=== PATIENT | male | born 1930 | race Caucasian/White ===

== ENCOUNTER 2017-03-13 14:13 | Emergency (ER) | payer OTHER ==
[~2017-03-13] VITALS: Ht 167.6 cm; Wt 71.2 kg
[~2017-03-13 14:13] MED LIST: ASPIRIN81 M1 PO; CHOLESTEROL MED PO; GABAPENTIN300 M1 PO; HYDROCHLOROTH12.5 MG PO; HYDROCODONE BIT1 T11 PO; METFORMIN500 MG PO; OMEGA-3 FISH1200 MG PO; PRAVACHOL80 MG PO; PREDNISONE20 MG PO
[2017-03-13 14:23] VITALS: BP 141/91
[2017-03-13 14:52] LABS: BILIRUBIN 3+ (NEGATIVE); BLOOD 3+ (NEGATIVE); CLARITY TURBID (CLEAR); COLOR RED (YELLOW); GLUCOSE NEGATIVE (NEGATIVE); KETONE 1+ (NEGATIVE); NITRITE POSITIVE (NEGATIVE); PH 6.5 (5.0-9.0)
[2017-03-13 14:53] LABS: BASO # 0.1 10*3/uL (0.0-0.1); BASO % 0.5 % (0.0-1.0); EOS # 0.2 10*3/uL (0.0-0.4); EOS % 1.5 % (1.0-4.0); HEMOGLOBIN 14.7 g/dl (14.0-18.0); LYMPH # 1.6 10*3/uL (1.3-4.4); LYMPH % 15.3 % (27.0-41.0); MEAN CELL VOLUME 93.8 fl (80.0-94.0); MEAN CORPUSCULAR HGB 30.6 pg (27.0-31.0); MEAN CORPUSCULAR HGB CONC 32.7 g/dl (33.0-37.0); MEAN PLATELET VOLUME 9.6 fl (9.6-12.3); MONO # 0.9 10*3/uL (0.1-1.0); MONO % 8.5 % (3.0-9.0); NEUT # 7.7 10*3/uL (2.3-7.9); PLATELET COUNT AUTOMATED 215 10*3/uL (130-400); RED CELL DISTRI WIDTH 12.9 % (0-14.5); WHITE BLOOD COUNT 10.4 10*3/uL (4.8-10.8)
[2017-03-13 14:56] LABS: LEUKO ESTERASE 3+ (NEGATIVE)
[2017-03-13 14:59] LABS: RBC TNTC rbc/hpf (0-2)
[2017-03-13 15:10] LABS: ALBUMIN 4.1 gm/dl (3.1-4.5); ALKALINE PHOSPHATASE 75 U/L (45-117); BUN 19 mg/dl (7-24); CHLORIDE 106 mmol/L (98-107); CREATININE 1.15 mg/dL (0.70-1.30); POTASSIUM 4.4 mmol/L (3.5-5.1); SGOT/AST 25 IU/L (3-35); SGPT/ALT 28 U/L (12-78); SODIUM 141 mmol/L (136-145); TOTAL PROTEIN 7.9 gm/dL (6.4-8.2)
== END 2017-03-13 18:09 | disposition other institution (70) ==
LOC: ED 14:13
PROVIDERS: Nurse Practitioner Family
DX: R31.9 Hematuria, unspecified (principal); M54.5 Low back pain; Z88.0 Allergy status to penicillin; Z88.2 Allergy status to sulfonamides; Z79.82 Long term (current) use of aspirin; Z79.899 Other long term (current) drug therapy; Z85.46 Personal history of malignant neoplasm of prostate

== ENCOUNTER 2018-04-09 14:01 | Emergency (ER) | payer OTHER ==
[~2018-04-09] VITALS: Ht 170.1 cm; Wt 72.6 kg
[2018-04-09 14:02] VITALS: BP 138/74
[2018-04-09] MEDS ORDERED: VICODIN 5-3001 EACH PO (15:39)
[2018-04-09] MEDS ORDERED: PREDNISONE50 MG PO (15:39)
== END 2018-04-09 15:51 | disposition home or self-care (01) ==
LOC: ED 14:01
DX: M17.11 Unilateral primary osteoarthritis, right knee (principal); M10.061 Idiopathic gout, right knee; I10 Essential (primary) hypertension; Z88.0 Allergy status to penicillin; Z88.2 Allergy status to sulfonamides; Z79.899 Other long term (current) drug therapy; Z79.82 Long term (current) use of aspirin

== ENCOUNTER 2018-07-06 14:36 | Emergency (ER) | payer OTHER ==
[~2018-07-06] VITALS: Ht 167.6 cm; Wt 72.6 kg
[~2018-07-06 14:36] MED LIST changes: +PREDNISONE50 MG PO; +VICODIN 5-3001 EACH PO
[2018-07-06 14:59] VITALS: BP 162/81
== END 2018-07-06 15:00 | disposition home or self-care (01) ==
LOC: ED 14:36
DX: R51 Headache (principal); I10 Essential (primary) hypertension; Z88.0 Allergy status to penicillin; Z88.2 Allergy status to sulfonamides; Z79.899 Other long term (current) drug therapy; Z79.82 Long term (current) use of aspirin; Z79.84 Long term (current) use of oral hypoglycemic drugs

== ENCOUNTER 2018-08-17 12:47 | Emergency (ER) | payer OTHER ==
[~2018-08-17] VITALS: Wt 72.6 kg
[2018-08-17 12:49] VITALS: BP 117/78
== END 2018-08-17 14:10 | disposition home or self-care (01) ==
LOC: ED 12:47
DX: S20.211A Contusion of right front wall of thorax, initial encounter (principal); Z88.0 Allergy status to penicillin; Z88.2 Allergy status to sulfonamides; Z79.899 Other long term (current) drug therapy; Z79.82 Long term (current) use of aspirin; Z79.84 Long term (current) use of oral hypoglycemic drugs; W01.118A Fall on same level from slipping, tripping and stumbling with subsequent striking against other sharp object, initial encounter; Y93.89 Activity, other specified; Y92.89 Other specified places as the place of occurrence of the external cause; Y99.8 Other external cause status

== ENCOUNTER → 2019-04-26 | Outpatient (CLI) | payer OTHER ==
[2019-04-26 11:09] LABS: BUN 21 mg/dl (7-24); CHLORIDE 106 mmol/L (98-107); CHOLESTEROL 136 mg/dL (<200); CREATININE 1.25 mg/dL (0.70-1.30); HDL CHOLESTEROL 56 mg/dl (40-60); LDL CHOLESTEROL 58 mg/dL (9-159); POTASSIUM 3.9 mmol/L (3.5-5.1); SODIUM 142 mmol/L (136-145); TRIGLYCERIDES 112 mg/dl (<150); VLDL CHOLESTEROL 22 mg/dL (6-40)
== END | disposition home or self-care (01) ==
LOC: LAB 09:35
PROVIDERS: Family Medicine
DX: E78.2 Mixed hyperlipidemia (principal); C61 Malignant neoplasm of prostate; R73.9 Hyperglycemia, unspecified; I10 Essential (primary) hypertension

== ENCOUNTER 2019-06-20 11:26 | Inpatient (IN) | payer OTHER ==
[~2019-06-20] VITALS: Ht 167.6 cm; Wt 76.4 kg
[2019-06-20] VITALS (8 sets, daily range): BP systolic 139–164; BP diastolic 68–98
[~2019-06-20 11:26] MED LIST changes: -GABAPENTIN300 M1 PO; +NEURONTIN300 MG PO
[2019-06-20 12:22] LABS: BASO # 0.1 10*3/uL (0.0-0.1); BASO % 0.6 % (0.0-1.0); EOS # 0.2 10*3/uL (0.0-0.4); EOS % 2.2 % (1.0-4.0); HEMATOCRIT 44.3 % (42.0-52.0); HEMOGLOBIN 14.4 g/dl (14.0-18.0); LYMPH # 1.6 10*3/uL (1.3-4.4); LYMPH % 21.1 % (27.0-41.0); MEAN CELL VOLUME 94.5 fl (80.0-94.0); MEAN CORPUSCULAR HGB 30.7 pg (27.0-31.0); MEAN CORPUSCULAR HGB CONC 32.5 g/dl (33.0-37.0); MEAN PLATELET VOLUME 10.4 fl (9.6-12.3); MONO # 0.8 10*3/uL (0.1-1.0); MONO % 10.3 % (3.0-9.0); NEUT # 5.1 10*3/uL (2.3-7.9); NEUT % 65.5 % (47.0-73.0); PLATELET COUNT AUTOMATED 206 10*3/uL (130-400); RED BLOOD COUNT 4.69 10*6/uL (4.50-5.90); RED CELL DISTRI WIDTH 13.1 % (0-14.5); WHITE BLOOD COUNT 7.7 10*3/uL (4.8-10.8)
[2019-06-20 12:41] LABS: ACT PARTIAL THROMBO TIME 24.7 SECONDS (20.0-32.1); ALBUMIN 3.9 gm/dl (3.1-4.5); ALKALINE PHOSPHATASE 87 U/L (45-117); BUN 16 mg/dl (7-24); CHLORIDE 109 mmol/L (98-107); CREATININE 1.23 mg/dL (0.70-1.30); INTERNATIONAL NORM RATIO 0.9 (2.0-3.5); LIPASE 228 U/L (73-393); POTASSIUM 4.1 mmol/L (3.5-5.1); SGOT/AST 14 IU/L (3-35); SGPT/ALT 22 U/L (12-78); SODIUM 141 mmol/L (136-145); TOTAL PROTEIN 7.3 gm/dL (6.4-8.2)
[2019-06-20 12:45] LABS: TROPONIN I < 0.015 ng/ml (<0.045)
--- NOTE | 2019-06-20 12:45 | NUR ---
PT WITH FAMILY AT BEDSIDE PT WITH NO COMPLAINTS NO REQUESTS BED IN LOWEST POSITION BED RAILS UP X 2 CALL LIGHT IN REACH
--- NOTE | 2019-06-20 14:56 | NUR ---
RESIDENCE IN WITH PATIENT PT DENIES ANY PAIN OR DISCOMFORT PT EATING CARRYOUT FOOD
[2019-06-20] MEDS ORDERED: HYDROCHLOROTHIA25 M1 PO (15:03)
[2019-06-20] MEDS ORDERED: ATORVASTATIN CA40 M1 PO (15:03)
--- NOTE | 2019-06-20 15:13 | NUR ---
LAB IN WITH PATIENT PT TO BE TRANSORTED TO 4E SOON LAB DRAW COMPLETE
--- NOTE | 2019-06-20 15:30 | NUR ---
A 88, admitted to , under the services of ELA Sandoval DO with a diagnosis of EXTREMITY NUMBNESS-CHEST PAIN. Chief complaint is NUMBNESS AND TINLING TO LEFT ARM INTERMITTENTLY THROUGHOUT TODAY. Patient arrived via stretcher from ER. Monitor applied. Initial assessment completed. Vital signs taken and recorded. ELA SANDOVAL DO notified of admission to the unit. Orders received. See assessment for past medical history, medications and allergies. Patient and/or family oriented to unit. [facility] reviewed. Clothing/patient valuable form completed. JEISON BLAKE
--- NOTE | 2019-06-20 20:24 | NUR ---
DR. DOS SANTOS AWARE OF PATIENT MED REC BEING UP TO DATE.
[2019-06-21] VITALS: BP 133/62
[2019-06-21 06:47] LABS: BASO # 0.1 10*3/uL (0.0-0.1); BASO % 0.7 % (0.0-1.0); EOS # 0.2 10*3/uL (0.0-0.4); EOS % 3.4 % (1.0-4.0); HEMATOCRIT 41.9 % (42.0-52.0); HEMOGLOBIN 13.5 g/dl (14.0-18.0); LYMPH # 1.6 10*3/uL (1.3-4.4); LYMPH % 22.8 % (27.0-41.0); MEAN CELL VOLUME 94.8 fl (80.0-94.0); MEAN CORPUSCULAR HGB 30.5 pg (27.0-31.0); MEAN CORPUSCULAR HGB CONC 32.2 g/dl (33.0-37.0); MEAN PLATELET VOLUME 9.9 fl (9.6-12.3); MONO # 0.9 10*3/uL (0.1-1.0); MONO % 12.3 % (3.0-9.0); NEUT # 4.2 10*3/uL (2.3-7.9); NEUT % 60.5 % (47.0-73.0); PLATELET COUNT AUTOMATED 187 10*3/uL (130-400); RED BLOOD COUNT 4.42 10*6/uL (4.50-5.90); RED CELL DISTRI WIDTH 12.9 % (0-14.5)
[2019-06-21 07:21] LABS: ALBUMIN 3.4 gm/dl (3.1-4.5); ALKALINE PHOSPHATASE 78 U/L (45-117); BUN 19 mg/dl (7-24); CHLORIDE 111 mmol/L (98-107); CHOLESTEROL 121 mg/dL (<200); CREATININE 1.11 mg/dL (0.70-1.30); HDL CHOLESTEROL 47 mg/dl (40-60); LDL CHOLESTEROL 43 mg/dL (9-159); PHOSPHOROUS 3.3 mg/dL (2.5-4.9); POTASSIUM 4.3 mmol/L (3.5-5.1); SGOT/AST 13 IU/L (3-35); SGPT/ALT 19 U/L (12-78); SODIUM 142 mmol/L (136-145); TOTAL PROTEIN 6.5 gm/dL (6.4-8.2); TRIGLYCERIDES 155 mg/dl (<150); VLDL CHOLESTEROL 31 mg/dL (6-40)
[2019-06-21 07:43] LABS: VITAMIN D, 25-HYDROXY 26.9 ng/mL (30-100)
[2019-06-21 08:00] VITALS: BP 144/86
--- NOTE | 2019-06-21 10:58 | NUR ---
PT DISCHARGED HOME AT THIS TIME.
== END 2019-06-21 11:50 | disposition home or self-care (01) | DRG 73 ==
LOC: ED 11:26 → EDHOLD 14:10 → 4E 15:02
PROVIDERS: Internal Medicine; Physician Assistant; ADMIT Internal Medicine
DX: G54.2 Cervical root disorders, not elsewhere classified (principal); N17.0 Acute kidney failure with tubular necrosis; I10 Essential (primary) hypertension; R07.9 Chest pain, unspecified; E78.5 Hyperlipidemia, unspecified; R73.03 Prediabetes; E87.8 Other disorders of electrolyte and fluid balance, not elsewhere classified; E83.41 Hypermagnesemia; D53.9 Nutritional anemia, unspecified; E66.3 Overweight; Z88.1 Allergy status to other antibiotic agents; Z88.0 Allergy status to penicillin; Z85.46 Personal history of malignant neoplasm of prostate; Z79.82 Long term (current) use of aspirin; Z79.899 Other long term (current) drug therapy; Z83.3 Family history of diabetes mellitus; Z68.28 Body mass index [BMI] 28.0-28.9, adult; R20.2 Paresthesia of skin